=== PATIENT | male | born 1995 | race Caucasian/White ===

== ENCOUNTER 2017-08-20 11:33 | Outpatient (CLI) | payer OTHER | END 2017-08-20 12:56 | disposition short-term general hospital (02) | LOC: AMB 11:33 | DX: S91.312A Laceration without foreign body, left foot, initial encounter (principal); W31.82XA Contact with other commercial machinery, initial encounter; Y92.69 Other specified industrial and construction area as the place of occurrence of the external cause | CPT/HCPCS: A0425; A0427 ==

== ENCOUNTER 2017-09-18 10:05 | Emergency (ER) | payer OTHER ==
[~2017-09-18] VITALS: Ht 185.4 cm; Wt 77.1 kg
[2017-09-18] MEDS ORDERED: DIAZEPAM10 M2 PO (10:20)
[2017-09-18] MEDS ORDERED: HYDR10TA47 PO (10:20)
[2017-09-18 11:43] VITALS: BP 126/62; TEMP 98.9
== END 2017-09-18 11:43 | disposition home or self-care (01) ==
LOC: ED 10:05
DX: S92.315D Nondisplaced fracture of first metatarsal bone, left foot, subsequent encounter for fracture with routine healing (principal); Z98.890 Other specified postprocedural states; W17.89XA Other fall from one level to another, initial encounter
CPT/HCPCS: 99282

== ENCOUNTER 2018-04-29 12:36 | Emergency (ER) | payer OTHER ==
[~2018-04-29] VITALS: Ht 185.4 cm; Wt 77.1 kg
[~2018-04-29 12:36] MED LIST: DIAZEPAM10 M2 PO; HYDR10TA47 PO
[2018-04-29 12:50] VITALS: TEMP 97.7
[2018-04-29 14:45] VITALS: BP 127/74
== END 2018-04-29 14:50 | disposition home or self-care (01) ==
LOC: ED 12:36
DX: M79.672 Pain in left foot (principal)
CPT/HCPCS: 96372; 99283; J1885

== ENCOUNTER 2019-09-20 18:42 | Emergency (ER) | payer OTHER ==
[~2019-09-20] VITALS: Ht 185.4 cm; Wt 77.1 kg
[2019-09-20 21:10] VITALS: BP 122/69; TEMP 98
== END 2019-09-20 21:10 | disposition home or self-care (01) ==
LOC: ED 18:42
DX: M79.672 Pain in left foot (principal); M62.838 Other muscle spasm
CPT/HCPCS: 96372; 99283; J1885; J2360